=== PATIENT | male | born 1940 | race Caucasian/White ===

== ENCOUNTER 2024-12-02 09:15 | Day surgery (SDC) | payer MEDICARE ==
[2024-12-02] MEDS ORDERED: Depo-Medrol 40 MG/ML IM ONE (09:16)
[2024-12-02] MEDS ORDERED: LIDOCAINE HCL 1% AMPUL 5 ML IJ ONE (09:16)
[2024-12-02] MEDS ORDERED: Sodium Chloride 0.9(Preservative Free) 10 ML IJ ONE (09:16)
[2024-12-02] MEDS ORDERED: propofoL IV ONE (12:19)
--- NOTE | 2024-12-02 13:12 | XRAY ---
33 seconds of fluoroscopy was used in surgery for a lumbar MISA.
--- NOTE | 2024-12-02 13:17 | XRAY ---
Indication: Lumbar MISA Intraoperative fluoroscopy provided for 33 seconds. 4 digital spot image submitted for interpretation demonstrates posterior needle tip projecting posterior to lumbosacral junction. Small amount of contrast injected for needle tip placement. Correlate with intraoperative findings/report.
== END 2024-12-02 12:59 | disposition home or self-care (01) ==
LOC: SDC-PAIN 09:15
PROVIDERS: ATTEND Psychiatry & Neurology Pain Medicine
DX: M54.16 Radiculopathy, lumbar region (principal); E11.9 Type 2 diabetes mellitus without complications
CPT/HCPCS: 62323; 72100; 77003; 82947; J2704; Q9966

== ENCOUNTER 2025-02-03 10:07 | Day surgery (SDC) | payer MEDICARE ==
[2025-02-03] MEDS ORDERED: Depo-Medrol 40 MG/ML IM ONE (10:08)
[2025-02-03] MEDS ORDERED: BUPIVACAINE 0.5% VIAL IJ ONE (10:08)
[2025-02-03] MEDS ORDERED: propofoL IV ONE (12:21)
--- NOTE | 2025-02-03 19:25 | XRAY ---
21 seconds of fluoroscopy was used in surgery for a left intra-articular shoulder and subacromial bursa injection.
--- NOTE | 2025-02-03 19:49 | XRAY ---
Indication: Left shoulder and subacromial bursa injection. Intraoperative fluoroscopy provided for 21 seconds. 3 digital spot image submitted for interpretation demonstrates needle tip projecting over left glenohumeral joint. Second needle tip subacromial. Small amount of contrast injected for needle tip placement. Correlate with intraoperative findings/report.
== END 2025-02-03 12:57 | disposition home or self-care (01) ==
LOC: SDC-PAIN 10:07
PROVIDERS: ATTEND Psychiatry & Neurology Pain Medicine
DX: M19.012 Primary osteoarthritis, left shoulder (principal); M75.52 Bursitis of left shoulder; E11.9 Type 2 diabetes mellitus without complications
CPT/HCPCS: 20610; 73030; 77002; 82947; J2704; Q9966